=== PATIENT | female | born 1980 | race African-American/Black ===

== ENCOUNTER 2017-05-05 10:44 | Emergency (ER) | payer OTHER ==
[2017-05-05 11:27] VITALS: BP 118/67; PULSE 88; TEMP 98.9; BMI 46.0
[2017-05-05] MEDS ORDERED: IBUPROFEN 600 MG TABLET (FP) PO ONE ×2 (12:22→12:27)
--- NOTE | 2017-05-05 12:28 | PDOC ---
History of Present Illness - General Chief Complaint: Pain Stated Complaint: LT LEG/ RT HEEL PAIN Time Seen by Provider: 05/05/17 12:16 History Source: Patient Exam Limitations: No Limitations - History of Present Illness Initial Comments: 05/05/17 12:33 Patient came for evaluation of left calf and posterior fossa leg pain 2 days. States started a couple days before but is progressively worsened yesterday and today when she woke up states was difficult to walk. 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 Denies any recent long travel, is not using control, has no history of DVT. Patient is currently using a tight suppressant for weight loss which has been successful Occurred: reports: other (2-3 days) Severity: reports: mild, moderate Pain Location: reports: lower extremity Associated Symptoms (Fall): denies symptoms Past History - Travel Traveled outside of the country in the last 30 days: No Close contact w/someone who was outside of country & ill: No - Past Medical History Allergies/Adverse Reactions: Allergies Allergy/AdvReac Type Severity Reaction Status Date / Time No Known Allergies Allergy Verified 12/26/12 17:59 Home Medications: Ambulatory Orders Naproxen [Naprosyn -] 500 mg PO BID #14 tablet 05/05/17 Asthma: No Cancer: No Cardiac Disorders: No COPD: No Diabetes: No HTN: No Seizures: No Thyroid Disease: No - Surgical History Cholecystectomy: Yes - Reproductive History (#): 2 Para: 1 - Suicide/Smoking/Psychosocial Hx Smoking Status: No Smoking History: Never smoked Have you smoked in the past 12 months: No Number of Cigarettes Smoked Daily: 0 Information on smoking cessation initiated: No Hx Alcohol Use: No Drug/Substance Use Hx: No Substance Use Type: None Hx Substance Use Treatment: No Trauma Specific PMHX - Complaint Specific PMHX Back Injury: No Neck Injury: No Review of Systems - Review of Systems Able to Perform ROS?: Yes Is the patient limited Syriac proficient: Yes Constitutional: Yes: Symptoms Reported, See HPI. No: Fever, Malaise HEENTM: Yes: Symptoms Reported Respiratory: No: Symptoms reported Musculoskeletal: Yes: Symptoms Reported, See HPI, Muscle Pain Integumentary: Yes: Symptoms Reported Neurological: Yes: Symptoms reported All Other Systems: Reviewed and Negative *Physical Exam - Vital Signs Last Vital Signs Temp Pulse Resp BP Pulse Ox 98.9 F 88 18 118/67 100 05/05/17 11:24 05/05/17 11:24 05/05/17 11:24 05/05/17 11:24 05/05/17 11:24 - Physical Exam General Appearance: Yes: Nourished, Appropriately Dressed, Mild Distress HEENT: positive: TAMIR, Normal ENT Inspection, TMs Normal, Pharynx Normal Neck: positive: Supple. negative: Lymphadenopathy (R), Lymphadenopathy (L) Respiratory/Chest: positive: Lungs Clear, Normal Breath Sounds Gastrointestinal/Abdominal: positive: Normal Bowel Sounds, Soft Musculoskeletal: positive: Other (morbidly obese). negative: CVA Tenderness Extremity: positive: Normal Capillary Refill, Tender, Swelling, Calf Tenderness (with some cording ). 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, Fully Oriented, Alert, Normal Mood/ Affect, Normal Response, Motor Strength 5/ ED Treatment Course - RADIOLOGY Radiology Studies Ordered: Category Date Time Status DUPLEX VASCUL US-1 LEG [US] Stat Ultrasound 05/05/17 12:21 Ordered Progress Note - Progress Note Progress Note: Ultrasound negative for DVT, we'll treat for leg strain with NSAIDs and have follow-up with orthopedist as needed *DC/Admit/Observation/Transfer Diagnosis at time of Disposition: Muscle strain, lower leg Qualifiers: Encounter type: initial encounter Laterality: left Qualified Code(s): S86.912A - Strain of unspecified muscle(s) and tendon(s) at lower leg level, left leg, initial encounter - Discharge Dispostion Disposition: HOME Condition at time of disposition: Stable Admit: No - Referrals Referrals: France Frank [Primary Care Provider] - Ric Campuzano MD [Staff Physician] - - Patient Instructions Printed Discharge Instructions: DI for Muscle Strain Additional Instructions: Rest, ice to area on and off for 15 minutes 4-6 times a day Avoid heavy lifting or exercise until pain and swelling is resolved or until further directed Keep area highly elevated to reduce swelling Use splints/Jamey wrap as directed Followup with orthopedist in one to 2 days if not improving, if significantly improved may wait one week for followup with orthopedist May use ibuprofen 2-200 mg tablets every 6 hours as needed for pain - Post Discharge Activity Forms/Work/School Notes: Back to Work
== END 2017-05-05 14:46 | disposition home or self-care (01) ==
LOC: JERFT 10:44
DX: S86.812A Strain of other muscle(s) and tendon(s) at lower leg level, left leg, initial encounter (principal); X58.XXXA Exposure to other specified factors, initial encounter; Y93.89 Activity, other specified; Y92.89 Other specified places as the place of occurrence of the external cause; Y99.8 Other external cause status
CPT/HCPCS: 93971-TC; 99281-25

== ENCOUNTER 2019-04-10 19:46 | Emergency (ER) | payer OTHER ==
[2019-04-10 20:02] VITALS: BP 153/101; PULSE 95; TEMP 97.8; BMI 44.4
[2019-04-10] MEDS ORDERED: ACETAMINOPHEN 500 MG TABLET (FP) PO ONE (20:24)
--- NOTE | 2019-04-10 20:26 | PDOC ---
History of Present Illness - General Chief Complaint: Cold Symptoms Stated Complaint: S.O.B Time Seen by Provider: 04/10/19 20:11 - History of Present Illness Initial Comments: 04/10/19 20:25 38-year-old female without comorbidities presents for evaluation of cough without systemic symptoms x7 days Past History - Past Medical History Allergies/Adverse Reactions: Allergies Allergy/AdvReac Type Severity Reaction Status Date / Time No Known Allergies Allergy Verified 12/26/12 17:59 Home Medications: Ambulatory Orders Naproxen [Naprosyn -] 500 mg PO BID #14 tablet 05/05/17 Amox-Tr/K Cl [Augmentin - 875Mg Tablet] 1 tab PO BID #20 tablet 04/10/19 Guaifenesin Dm [Mucinex Dm -] 1 tab PO BID #60 tab.er.12h 04/10/19 Asthma: No Cancer: No Cardiac Disorders: No COPD: No Diabetes: No HTN: No Seizures: No Thyroid Disease: No Other medical history: Morbid obesity - Surgical History Cholecystectomy: Yes - Reproductive History (#): 2 Para: 1 - Psycho Social/Smoking Cessation Hx Smoking Status: No Smoking History: Never smoked Have you smoked in the past 12 months: No Number of Cigarettes Smoked Daily: 0 Hx Alcohol Use: No Drug/Substance Use Hx: No Substance Use Type: None Hx Substance Use Treatment: No Review of Systems - Review of Systems Constitutional: No: Fever Respiratory: Yes: Cough, Productive cough *Physical Exam - Vital Signs Last Vital Signs Temp Pulse Resp BP Pulse Ox 97.8 F 95 H 20 153/101 H 96 04/10/19 19:55 04/10/19 19:55 04/10/19 19:55 04/10/19 19:55 04/10/19 19:55 - Physical Exam 04/10/19 20:25 GENERAL: The patient is awake, alert, and fully oriented, in no acute distress. HEAD: Normal with no signs of trauma. EYES: sclera anicteric, conjunctiva clear. ENT: Ears normal tympanic membranes normal oropharynx clear uvula midline NECK: Normal range of motion LUNGS: Right-sided rhonchi otherwise normal breath sounds HEART: S1 and S2 without murmur, rub or gallop. ABDOMEN: Soft, nontender, normoactive bowel sounds. No guarding, no rebound. No masses. EXTREMITIES: Normal range of motion, no edema. No clubbing or cyanosis. No cords, erythema, or tenderness. NEUROLOGICAL: Cranial nerves II through XII grossly intact. Normal speech, normal gait. PSYCH: Normal mood, normal affect. SKIN: Warm, Dry, normal turgor, no rashes or lesions noted. Medical Decision Making - Medical Decision Making 04/10/19 20:25 We will treat for bronchitis with Augmentin follow-up with primary care physician. Discharge - Discharge Information Problems reviewed: Yes Clinical Impression/Diagnosis: Bronchitis Condition: Stable Disposition: HOME - Admission No - Additional Discharge Information Prescriptions: Amox-Tr/K Cl [Augmentin - 875Mg Tablet] 1 tab PO BID #20 tablet Guaifenesin Dm [Mucinex Dm -] 1 tab PO BID #60 tab.er.12h - Follow up/Referral Referrals: Burke Swann MD [Staff Physician] - - Patient Discharge Instructions Patient Printed Discharge Instructions: DI for Acute Bronchitis Additional Instructions: Please take the antibiotics and Mucinex as directed. You may take Tylenol and Motrin for pain. Return to the emergency room for worsening symptoms. And without fail follow-up with your primary care physician in 2 to 3 days for further evaluation and treatment options. - Post Discharge Activity
== END 2019-04-10 20:37 | disposition home or self-care (01) ==
LOC: JERFT 19:46
DX: J40 Bronchitis, not specified as acute or chronic (principal)
CPT/HCPCS: 99281-25

== ENCOUNTER 2023-11-16 09:09 | Emergency (ER) | payer OTHER ==
[2023-11-16 09:48] VITALS: RESP 18; TEMP 98.4; BMI 42.5
[2023-11-16] MEDS ORDERED: MAGNESIUM SULF 50% (8.12 MEQ/2 ML-1 GM VIAL) ONE (09:53)
[2023-11-16] MEDS ORDERED: ACETAMINOPHEN INJECTION 100 ML IVPB ONE (09:53)
[2023-11-16] MEDS ORDERED: METOCLOPRAMIDE HCL INJECTION 10 MG/2 ML VIAL ONE (09:53)
[2023-11-16] MEDS: MAGNESIUM SULF 50% (8.12 MEQ/2 ML-1 GM VIAL) IVPB ONE (10:30)
[2023-11-16] MEDS: SODIUM CHLORIDE 1,000 ML IV STA (11:15)
[2023-11-16] MEDS: ACETAMINOPHEN 1000 MG/100 ML BAG IVPB ONE (11:15)
[2023-11-16] MEDS: METOCLOPRAMIDE HCL INJECTION 10 MG/2 ML VIAL IVPUSH ONE (11:25)
[2023-11-16 11:59] LABS: BASO % 0.7 % (0-2.0); HEMATOCRIT 27.7 % (32.4-45.2); HEMOGLOBIN 8.4 GM/dL (10.7-15.3); LYMPH % 24.7 % (8-40); MCHC 30.5 g/dl (32.0-36.0); MEAN PLT VOLUME 7.3 fl (7.5-11.1); MONO % 5.7 % (3.8-10.2); NEUT % 67.9 % (42.8-82.8); PLATELET COUNT 372 10^3/uL (134-434); RBC 4.55 M/mm3 (3.60-5.2); RDW 20.1 % (11.6-15.6); WHITE BLOOD COUNT 8.2 K/mm3 (4.0-10.0)
[2023-11-16 12:01] LABS: MCH 18.6 pg (25.7-33.7)
[2023-11-16 12:12] LABS: POTASSIUM 3.9 mmol/L (3.5-5.1)
[2023-11-16 12:14] LABS: ALBUMIN 3.6 g/dl (3.4-5.0); MAGNESIUM 2.9 mg/dL (1.8-2.4)
[2023-11-16 12:17] LABS: CREATININE 0.8 mg/dL (0.55-1.3)
[2023-11-16 12:19] LABS: BILIRUBIN,TOTAL 0.5 mg/dL (0.2-1)
[2023-11-16 12:31] LABS: ANISOCYTOSIS 1+; MACROCYTOSIS 0; TOT PROT 8.2 g/dl (6.4-8.2)
[2023-11-16 12:43] LABS: EPI CELLS >36 /uL (0-25.1); HYALINE CASTS 2 /uL (0-3.1); PH,URINE 5.5 (5.0-8.0); URINE APPEARANCE CLOUDY; URINE BACTERIA 2540 /uL (0-1359); URINE BILIRUBIN NEGATIVE (NEGATIVE); URINE COLOR YELLOW; URINE GLUCOSE (UA) NEGATIVE (NEGATIVE); URINE KETONE NEGATIVE (NEGATIVE); URINE LEUK ESTERASE 1+ (NEGATIVE); URINE NITRITE NEGATIVE (NEGATIVE); URINE PROTEIN NEGATIVE (NEGATIVE); URINE UROBILINOGEN 0.2 mg/dL (0.2-1.0); URINE WBC 74 /uL (0-25.8)
[2023-11-16 13:03] VITALS: BP 115/58; PULSE 69
[2023-11-16 13:06] LABS: URINE RBC 31 /uL (0-23.9)
== END 2023-11-16 13:36 | disposition home or self-care (01) ==
LOC: JER 09:09
PROC: 3E033NZ Introduction of Analgesics, Hypnotics, Sedatives into Peripheral Vein, Percutaneous Approach (ICD-10-PCS; principal; 2023-11-16)
PROC: 3E033GC Introduction of Other Therapeutic Substance into Peripheral Vein, Percutaneous Approach (ICD-10-PCS; 2023-11-16)
PROC: 3E033GC Introduction of Other Therapeutic Substance into Peripheral Vein, Percutaneous Approach (ICD-10-PCS; 2023-11-16)
PROC: 3E0337Z Introduction of Electrolytic and Water Balance Substance into Peripheral Vein, Percutaneous Approach (ICD-10-PCS; 2023-11-16)
DX: G43.919 Migraine, unspecified, intractable, without status migrainosus (principal); R42 Dizziness and giddiness; R11.0 Nausea; Z20.822 Contact with and (suspected) exposure to COVID-19
CPT/HCPCS: 0241U-QW; 36415; 80053; 81003; 83735; 84484; 84703; 85025; 86850; 86900; 86901; 87086; 93005; 93010; 99284-25; J0131

== ENCOUNTER 2024-04-07 11:24 | Inpatient (IN) | payer OTHER ==
[2024-04-07] MEDS ORDERED: VANCOMYCIN HCL 1,500 MG in DEXTROSE 5%-WATER - 500 ML IVPB ONE (12:42)
[2024-04-07] MEDS ORDERED: morphine SULFATE 4 MG/ML VIAL ONE (13:53)
[2024-04-07 14:48] LABS: BASO % 0.3 % (0-2.0); EOS % 0.5 % (0-4.5); HEMATOCRIT 23.6 % (32.4-45.2); LYMPH % 14.7 % (8-40); MCHC 28.1 g/dl (32.0-36.0); MEAN CELL VOLUME 58.4 fl (80-96); MEAN PLT VOLUME 7.8 fl (7.5-11.1); MONO % 8.3 % (3.8-10.2); NEUT % 76.2 % (42.8-82.8); PLATELET COUNT 433 10^3/uL (134-434); RBC 4.04 M/mm3 (3.60-5.2); RDW 21.4 % (11.6-15.6); WHITE BLOOD COUNT 16.9 K/mm3 (4.0-10.0)
[2024-04-07 14:49] LABS: MCH 16.4 pg (25.7-33.7)
[2024-04-07 14:53] LABS: HEMOGLOBIN 6.6 GM/dL (10.7-15.3)
[2024-04-07 15:14] LABS: POTASSIUM 3.7 mmol/L (3.5-5.1)
[2024-04-07 15:15] LABS: ANISOCYTOSIS 2+; CALCIUM 8.9 mg/dL (8.5-10.1); MACROCYTOSIS 0; OVALOCYTE 1+
[2024-04-07 15:19] LABS: CREATININE 0.6 mg/dL (0.55-1.3)
[2024-04-07 15:21] LABS: BILIRUBIN,TOTAL 0.5 mg/dL (0.2-1); TOT PROT 7.8 g/dl (6.4-8.2)
[2024-04-07] MEDS: morphine SULFATE 4 MG/ML VIAL IVPUSH ONE (15:24)
[2024-04-07] MEDS: VANCOMYCIN HCL IN 5 % DEXTROSE 1,500 MG/300 ML BAG IVPB ONE (15:53)
[2024-04-07] MEDS ORDERED: morphine SULFATE IMMEDIATE RELEASE 30 MG TAB PO PRN (17:25)
[2024-04-07] MEDS ORDERED: MORPHINE SULFATE 2 MG/ML SYRINGE IVPUSH PRN (17:25)
[2024-04-07] MEDS ORDERED: ACETAMINOPHEN 325 MG TABLET (FP) PO PRN (17:26)
[2024-04-07] MEDS ORDERED: DOCUSATE SODIUM 100 MG CAPSULE (FP) PO PRN (17:27)
[2024-04-07] MEDS: ENOXAPARIN NA (PORCINE) 40 MG/0.4 ML DISP.SYRIN SQ SCH (21:38)
[2024-04-07] MEDS: IRON SUCROSE INJECTION 100 MG in SODIUM CHLORIDE 95 ML IVPB ONE (21:38)
[2024-04-08] MEDS: VANCOMYCIN PREMIX 1.5 GM 1,500 MG/300 ML BAG IVPB SCH (02:58)
[2024-04-08 08:33] LABS: BASO % 0.2 % (0-2.0); EOS % 0.5 % (0-4.5); HEMATOCRIT 23.2 % (32.4-45.2); MCHC 29.5 g/dl (32.0-36.0); MEAN CELL VOLUME 57.6 fl (80-96); MEAN PLT VOLUME 8.1 fl (7.5-11.1); MONO % 9.7 % (3.8-10.2); NEUT % 79.6 % (42.8-82.8); PLATELET COUNT 425 10^3/uL (134-434); RBC 4.03 M/mm3 (3.60-5.2); RDW 20.9 % (11.6-15.6); WHITE BLOOD COUNT 16.2 K/mm3 (4.0-10.0)
[2024-04-08 08:49] LABS: HEMOGLOBIN 6.8 GM/dL (10.7-15.3)
[2024-04-08 09:48] LABS: POTASSIUM 3.7 mmol/L (3.5-5.1)
[2024-04-08 10:09] LABS: CALCIUM 8.9 mg/dL (8.5-10.1)
[2024-04-08 10:13] LABS: CREATININE 0.7 mg/dL (0.55-1.3)
[2024-04-08] MEDS: IRON SUCROSE INJECTION 100 MG in SODIUM CHLORIDE 95 ML IVPB ONE (11:27)
[2024-04-08] MEDS ORDERED: ONDANSETRON 4 MG/2 ML VIAL IVPUSH PRN ×2 (15:36→16:59)
[2024-04-08] MEDS ORDERED: oxyCODONE HCL 5 MG TABLET PO PRN (15:36)
[2024-04-08] MEDS ORDERED: PROPOFOL 20 ML ONE (15:45)
[2024-04-08] MEDS ORDERED: LACTATED RINGERS SOLUTION 1,000 ML IV SCH ×2 (15:45→16:59)
[2024-04-08] MEDS ORDERED: LIDOCAINE HCL/PF 2% SDV 5ML VIAL ONE (15:45)
[2024-04-08] MEDS ORDERED: MIDAZOLAM HCL 2 MG/2 ML SINGLE DOSE VIAL ONE (15:46)
[2024-04-08] MEDS ORDERED: SUCCINYLCHOLINE CHLORIDE 200 MG/10 ML SYRINGE ONE (15:57)
[2024-04-08] MEDS: oxyCODONE HCL 5 MG TABLET PO PRN (23:03)
[2024-04-09] MEDS: VANCOMYCIN PREMIX 1.5 GM 1,500 MG/300 ML BAG IVPB SCH (01:53)
[2024-04-09 08:21] LABS: BASO % 0.2 % (0-2.0); EOS % 1.3 % (0-4.5); HEMATOCRIT 22.3 % (32.4-45.2); LYMPH % 11.1 % (8-40); MCHC 27.6 g/dl (32.0-36.0); MEAN CELL VOLUME 59.1 fl (80-96); MEAN PLT VOLUME 8.1 fl (7.5-11.1); MONO % 9.8 % (3.8-10.2); NEUT % 77.6 % (42.8-82.8); PLATELET COUNT 406 10^3/uL (134-434); RBC 3.77 M/mm3 (3.60-5.2); RDW 21.5 % (11.6-15.6); WHITE BLOOD COUNT 15.2 K/mm3 (4.0-10.0)
[2024-04-09 08:30] LABS: MCH 16.3 pg (25.7-33.7)
[2024-04-09 08:35] LABS: POTASSIUM 3.5 mmol/L (3.5-5.1)
[2024-04-09 08:37] LABS: HEMOGLOBIN 6.1 GM/dL (10.7-15.3)
[2024-04-09 08:40] LABS: CALCIUM 8.4 mg/dL (8.5-10.1)
[2024-04-09 08:41] LABS: ALBUMIN 2.6 g/dl (3.4-5.0); BLOOD UREA NITROGEN 7.7 mg/dL (7-18); MAGNESIUM 2.2 mg/dL (1.8-2.4)
[2024-04-09 08:44] LABS: CREATININE 0.6 mg/dL (0.55-1.3)
[2024-04-09 08:45] LABS: BILIRUBIN,TOTAL 0.5 mg/dL (0.2-1); TOT PROT 7.1 g/dl (6.4-8.2)
[2024-04-09] MEDS ORDERED: ENOXAPARIN NA (PORCINE) 40 MG/0.4 ML DISP.SYRIN SQ SCH (10:00)
[2024-04-09] MEDS: DOCUSATE SODIUM 100 MG CAPSULE (FP) PO PRN (10:09)
[2024-04-09] MEDS: ENOXAPARIN NA (PORCINE) 40 MG/0.4 ML DISP.SYRIN SQ SCH (10:09)
[2024-04-09 11:47] VITALS: BMI 43.5
[2024-04-09 20:21] LABS: BASO % 0.4 % (0-2.0); EOS % 1.5 % (0-4.5); HEMATOCRIT 25.5 % (32.4-45.2); HEMOGLOBIN 7.4 GM/dL (10.7-15.3); LYMPH % 12.3 % (8-40); MEAN CELL VOLUME 61.2 fl (80-96); MEAN PLT VOLUME 7.9 fl (7.5-11.1); MONO % 6.7 % (3.8-10.2); NEUT % 79.1 % (42.8-82.8); PLATELET COUNT 423 10^3/uL (134-434); RBC 4.17 M/mm3 (3.60-5.2); WHITE BLOOD COUNT 13.5 K/mm3 (4.0-10.0)
[2024-04-09 20:29] LABS: ADD RBC MORPHOLOGY YES; MCH 17.8 pg (25.7-33.7)
[2024-04-09 21:02] LABS: ANISOCYTOSIS 2+; MACROCYTOSIS 0; OVALOCYTE 1+; TARGET CELLS 2+; TEAR DROP CELLS 1+
[2024-04-09] MEDS: IBUPROFEN 600 MG TABLET (FP) PO PRN (21:30)
[2024-04-10 09:24] LABS: POTASSIUM 3.6 mmol/L (3.5-5.1)
[2024-04-10 09:29] LABS: CALCIUM 8.6 mg/dL (8.5-10.1); HEMATOCRIT 25.2 % (32.4-45.2); HEMOGLOBIN 7.4 GM/dL (10.7-15.3); MCHC 29.4 g/dl (32.0-36.0); MEAN CELL VOLUME 61.6 fl (80-96); MEAN PLT VOLUME 7.9 fl (7.5-11.1); PLATELET COUNT 434 10^3/uL (134-434); RDW 23.1 % (11.6-15.6); WHITE BLOOD COUNT 12.2 K/mm3 (4.0-10.0)
[2024-04-10 09:30] LABS: ALBUMIN 2.6 g/dl (3.4-5.0); BLOOD UREA NITROGEN 7.1 mg/dL (7-18); MAGNESIUM 2.2 mg/dL (1.8-2.4)
[2024-04-10 09:33] LABS: BILIRUBIN,TOTAL 0.4 mg/dL (0.2-1); CREATININE 0.6 mg/dL (0.55-1.3); TOT PROT 7.4 g/dl (6.4-8.2)
[2024-04-10 09:35] LABS: MCH 18.1 pg (25.7-33.7)
[2024-04-10 11:37] LABS: ANISOCYTOSIS 3+; MACROCYTOSIS 1+; OVALOCYTE 1+; TARGET CELLS 1+
[2024-04-10] MEDS: ACETAMINOPHEN 500 MG TABLET (FP) PO PRN (12:38)
[2024-04-10] MEDS: POLYETHYLENE GLYCOL (HEALTHYLAX) 3350 17 GM PACKET PO SCH (14:42)
[2024-04-10] MEDS: FERROUS SO4 325 MG TABLET (FP) PO SCH (16:51)
[2024-04-10 17:20] VITALS: RESP 18
[2024-04-11 06:06] VITALS: BP 115/67; PULSE 68; TEMP 98.2
[2024-04-11 09:01] LABS: BASO % 0.3 % (0-2.0); BASO % 1.1 % (0-2.0); EOS % 2.2 % (0-4.5); EOS % 2.9 % (0-4.5); HEMATOCRIT 33.7 % (32.4-45.2); HEMATOCRIT 33.9 % (32.4-45.2); HEMOGLOBIN 10.1 GM/dL (10.7-15.3); LYMPH % 19.9 % (8-40); MCHC 29.6 g/dl (32.0-36.0); MCHC 29.9 g/dl (32.0-36.0); MEAN CELL VOLUME 64.4 fl (80-96); MEAN PLT VOLUME 7.8 fl (7.5-11.1); MONO % 6.3 % (3.8-10.2); MONO % 7.7 % (3.8-10.2); NEUT % 69.8 % (42.8-82.8); NEUT % 72.8 % (42.8-82.8); PLATELET COUNT 524 10^3/uL (134-434); PLATELET COUNT 546 10^3/uL (134-434); RBC 5.19 M/mm3 (3.60-5.2); RBC 5.26 M/mm3 (3.60-5.2); RDW 26.6 % (11.6-15.6); WHITE BLOOD COUNT 10.6 K/mm3 (4.0-10.0); WHITE BLOOD COUNT 10.7 K/mm3 (4.0-10.0)
[2024-04-11 09:03] LABS: MCH 19.1 pg (25.7-33.7); MCH 19.4 pg (25.7-33.7)
[2024-04-11 09:24] LABS: POTASSIUM 4.2 mmol/L (3.5-5.1)
[2024-04-11 09:28] LABS: ALBUMIN 2.8 g/dl (3.4-5.0); BLOOD UREA NITROGEN 8.6 mg/dL (7-18); CALCIUM 9.2 mg/dL (8.5-10.1); MAGNESIUM 2.1 mg/dL (1.8-2.4)
[2024-04-11 09:31] LABS: CREATININE 0.7 mg/dL (0.55-1.3)
[2024-04-11 09:32] LABS: BILIRUBIN,TOTAL 0.3 mg/dL (0.2-1); TOT PROT 8.2 g/dl (6.4-8.2)
[2024-04-11 09:40] LABS: ANISOCYTOSIS 3+; MACROCYTOSIS 1+; OVALOCYTE 1+
[2024-04-11 09:42] LABS: POTASSIUM 3.8 mmol/L (3.5-5.1)
[2024-04-11 09:44] LABS: CALCIUM 9.3 mg/dL (8.5-10.1)
[2024-04-11 09:45] LABS: BLOOD UREA NITROGEN 8.1 mg/dL (7-18)
[2024-04-11 09:48] LABS: CREATININE 0.7 mg/dL (0.55-1.3)
[2024-04-11 09:49] LABS: BILIRUBIN,TOTAL 0.3 mg/dL (0.2-1); TOT PROT 8.6 g/dl (6.4-8.2)
[2024-04-11] MEDS: FLUCONAZOLE 150 MG TABLET PO ONE (11:43)
== END 2024-04-11 12:30 | disposition home or self-care (01) | DRG 385 ==
LOC: JER 11:24 → JERFT 11:24 → JERBED 17:14 → J7W 19:12 → OBSVTOIN 04-08 10:17
PROVIDERS: ADMIT Internal Medicine
PROC: 0H9T00Z Drainage of Right Breast with Drainage Device, Open Approach (ICD-10-PCS; principal; 2024-04-09)
PROC: 30233N1 Transfusion of Nonautologous Red Blood Cells into Peripheral Vein, Percutaneous Approach (ICD-10-PCS; 2024-04-09)
DX: N61.1 Abscess of the breast and nipple (principal); D50.9 Iron deficiency anemia, unspecified; E66.01 Morbid (severe) obesity due to excess calories; Z68.41 Body mass index [BMI] 40.0-44.9, adult; Z98.84 Bariatric surgery status; D72.829 Elevated white blood cell count, unspecified
CPT/HCPCS: 36415; 36430; 76604; 80048; 80053; 82728; 83540; 83550; 83735; 84703; 85025; 86850; 86900; 86901; 86922; 87040; 87070; 87076; 87205; 94760; 99285-25; G0378; J1756; P9058

== ENCOUNTER 2024-11-13 10:17 | Emergency (ER) | payer OTHER ==
[2024-11-13 10:22] VITALS: BP 137/83; PULSE 84; RESP 20; TEMP 98.4; BMI 42.5
[2024-11-13] MEDS ORDERED: ACETAMINOPHEN 325 MG TABLET (FP) ONE (13:38)
[2024-11-13] MEDS: ACETAMINOPHEN 325 MG TABLET (FP) PO ONE (13:53)
[2024-11-13 13:59] LABS: ABSOLUTE IMMATURE GRANULOCYTES 0.04 x10^3/uL (0.0-0.031); BASOPHILS # 0.05 x10^3/uL (0.01-0.08); EOSINOPHIL % 0.8 % (0.7-5.8); EOSINOPHILS # 0.10 x10^3/uL (0.04-0.36); MCHC 29.3 g/dl (32.2-35.5); MEAN CELL VOLUME 70.3 fl (79.4-94.8); MEAN PLT VOLUME 9.0 fl (9.4-12.3); MONOCYTE # 0.74 x10^3/uL (0.24-0.86); MONOCYTE % 6.0 % (4.7-12.5); RDW 18.7 % (12.2-17.1)
[2024-11-13 14:35] LABS: CO2 24.0 mmol/L (21-32); GLUCOSE,RANDOM 96.0 mg/dL (74-106)
[2024-11-13 14:38] LABS: SGPT/ALT 18.0 U/L (13-61)
[2024-11-13 14:39] LABS: CREATININE 0.8 mg/dL (0.55-1.3); SGOT/AST 16.0 U/L (15-37); TOT PROT 7.8 g/dl (6.4-8.2)
[2024-11-13 14:51] LABS: ALK PHOS 77.0 U/L (45-117)
[2024-11-13 15:59] LABS: HIV INTERPRETATION NEGATIVE (NEGATIVE)
[2024-11-13 16:03] LABS: HCG,QUALITATIVE URINE Negative
[2024-11-13 16:04] LABS: HCV DIAGNOSTIC IN-HOUSE W/RFLX NON-REACTIVE (NONREACTIVE)
[2024-11-13 16:56] LABS: URINE APPEARANCE Slightly Cloudy; URINE BILIRUBIN Negative (NEGATIVE); URINE COLOR Other; URINE GLUCOSE (UA) Negative (NEGATIVE); URINE KETONE Negative (NEGATIVE); URINE LEUK ESTERASE Negative (NEGATIVE); URINE NITRITE Negative (NEGATIVE); URINE PROTEIN 1+ (NEGATIVE); URINE UROBILINOGEN 0.2 mg/dL (0.2-1.0)
== END 2024-11-13 17:20 | disposition home or self-care (01) ==
LOC: JER 10:17
DX: R53.1 Weakness (principal); R51.9 Headache, unspecified; R11.0 Nausea; R53.83 Other fatigue; R53.81 Other malaise
CPT/HCPCS: 36415; 80053; 81003; 84703; 85025; 86803; 87086; 87389; 93005; 93010; 99283-25